=== PATIENT | female | born 1985 | race Caucasian/White ===

== ENCOUNTER 2018-03-06 03:08 | Inpatient (IN) ==
[2018-03-07 12:13] VITALS: BP 111/68
== END 2018-03-07 13:15 | disposition home or self-care (01) | DRG 419 ==
LOC: N.ED 03:08 → N.EDINP 09:16 → N.3E 09:45
PROVIDERS: ADMIT Surgery; ATTEND Surgery
PROC: LAPCHOL (2018-03-06 11:32)